=== PATIENT | female | born 1950 | race Caucasian/White ===

== ENCOUNTER 2018-04-12 02:25 | Outpatient (CLI) | payer MEDICARE, SELFPAY ==
--- NOTE | 2018-04-12 11:08 | DI.US_ITS ---
SYMPTOMS/DIAGNOSIS: ABDOMINAL PAIN, R10.9 ABDOMINAL ULTRASOUND: Routine examination was performed. The distal aorta and IVC were not seen due to overlying bowel. The proximal aorta and IVC are unremarkable. The liver is mildly enlarged, measuring almost 19 cm. There is diffuse increased echogenicity of the liver consistent with fatty infiltration. No hepatic mass is seen. There are mobile stones seen within the gallbladder. No sludge, gallbladder wall thickening or pericholecystic fluid is seen. The common duct is within normal limits at 0.4 cm. The pancreatic tail could not be visualized. The remainder of the pancreas has a normal appearance. The spleen is unremarkable. The kidneys are normal in size. No solid renal mass, calculus or obstruction is identified. IMPRESSION: 1. Hepatic steatosis, hepatomegaly. 2. Cholelithiasis. No biliary ductal dilatation.
== END 2018-04-12 02:45 ==
PROVIDERS: PCP Family Medicine; Visit Provider Family Medicine
DX: R10.9 Unspecified abdominal pain (principal); K76.0 Fatty (change of) liver, not elsewhere classified; K80.20 Calculus of gallbladder without cholecystitis without obstruction
CPT/HCPCS: 76700

== ENCOUNTER 2018-10-27 14:07 | Outpatient (REF) | payer MEDICARE, SELFPAY ==
[2018-10-27 20:04] LABS: Hemoglobin A1C 7.7 % (4.5-6.2)
[2018-10-27 20:13] LABS: BUN 16 mg/dL (7-18); Calcium 9.3 mg/dL (8.5-10.1); Chloride 102 mmol/L (98-107); Glucose 174 mg/dL (70-100); Potassium 4.9 mmol/L (3.5-5.1); Sodium 141 mmol/L (136-145); TSH (W/Ref FT4) 1.28 uIU/mL (0.358-3.74)
== END 2018-10-27 14:27 ==
LOC: NCHCN 14:07
PROVIDERS: PCP Family Medicine; Visit Provider Family Medicine
DX: E11.65 Type 2 diabetes mellitus with hyperglycemia (principal); F32.9 Major depressive disorder, single episode, unspecified; I10 Essential (primary) hypertension; E66.9 Obesity, unspecified
CPT/HCPCS: 80048; 83036; 84443

== ENCOUNTER 2018-12-04 18:12 | Outpatient (REF) | payer MEDICARE, SELFPAY ==
--- NOTE | 2018-12-04 11:53 | SKI_PTH ---
PATIENT: Shannen Earl LOC: [facility] U#:[id number] AGE/SX: 68/F ROOM: RE12/04/[address]: Narayan Munoz DO : 1950 BED: DIS: 12/04/2018 SPEC #: [id number] RECD: 12/04/18 18:23 STATUS: ROM REQ #: [id number] DOMINIC: 12/04/18 11:[address]: Narayan Munoz DEPT: Surgical Specimen RECD BY: Wilma Canela ENTERED: 12/04/18 18:24 SP TYPE: SKI OT DR: Sylvia Victoria V Tissues: 1 - SKIN BIOPSY(SHAVE/PUNCH) Procedures: IMMUNOPEROXIDASE STAIN SKIN LEVEL 4 Comments: [id number]
== END 2018-12-04 18:32 ==
LOC: LBN 18:12
PROVIDERS: PCP Family Medicine; Visit Provider Otolaryngology Otolaryngology/Facial Plastic Surgery
DX: D22.61 Melanocytic nevi of right upper limb, including shoulder (principal); Z80.8 Family history of malignant neoplasm of other organs or systems
CPT/HCPCS: 88305; 88361

== ENCOUNTER 2018-12-11 12:28 | Outpatient (REF) | payer MEDICARE, SELFPAY ==
--- NOTE | 2018-12-11 12:06 | SKI_PTH ---
PATIENT: Shannen Earl LOC: [facility] U#:[id number] AGE/SX: 68/F ROOM: RE12/11/[address]: Narayan Munoz DO : 1950 BED: DIS: 12/11/2018 SPEC #: [id number] RECD: 12/11/18 18:12 STATUS: ROM REQ #: [id number] DOMINIC: 12/11/18 12:[address]: Narayan Munoz DEPT: Surgical Specimen RECD BY: Wilma Canela ENTERED: 12/11/18 18:12 SP TYPE: SKI OTHR DR: Sylvia Victoria V Tissues: 1 - SKIN BIOPSY(SHAVE/PUNCH) Procedures: SKIN LEVEL 4 Comments: [id number]
== END 2018-12-11 12:48 ==
LOC: LBN 12:28
PROVIDERS: PCP Family Medicine; Visit Provider Otolaryngology Otolaryngology/Facial Plastic Surgery
DX: L90.5 Scar conditions and fibrosis of skin (principal); D22.61 Melanocytic nevi of right upper limb, including shoulder; Z98.890 Other specified postprocedural states
CPT/HCPCS: 88305

== ENCOUNTER 2019-08-24 12:55 | Outpatient (REF) | payer MEDICARE, SELFPAY ==
[2019-08-24 19:31] LABS: HGB 18.3 g/dL (12.0-15.5); Mean Corpuscular Hemoglobin 30.2 pg (27.0-33.0); Mean Corpuscular Volume 94.2 fL (80-95); Mean Platelet Volume 11.6 fL (8.0-11.0); Platelet Count 199 x1000/uL (130-400); RBC 6.06 m/cumm (4.00-5.20); RBC Distribution Width 14.6 % (11.7-14.6); White Blood Cell Count 6.78 k/cumm (4.4-10.8)
[2019-08-24 19:36] LABS: ALT 21 U/L (14-59); AST 17 U/L (15-37); Albumin 3.5 g/dL (3.4-5.0); Alkaline Phosphatase 140 U/L (46-116); BUN 10 mg/dL (7-18); Bilirubin, Total 0.3 mg/dL (0.2-1.0); CREATININE 0.76 mg/dL (0.55-1.02); Calcium 8.7 mg/dL (8.5-10.1); Chloride 103 mmol/L (98-107); Glucose 124 mg/dL (74-106); Potassium 4.8 mmol/L (3.5-5.1); Sodium 140 mmol/L (136-145); Total Protein 6.7 g/dL (6.4-8.2)
[2019-08-24 19:59] LABS: HCT 57.1 % (36.0-46.0)
[2019-08-24 20:01] LABS: Hemoglobin A1C 7.6 % (3.8-5.6)
[2019-08-27 09:13] LABS: Iron 80 ug/dL (50-170); Total Iron Binding Capacity 346 ug/dL (250-450); Transferrin Sat 23 % (15-50)
[2019-08-27 09:29] LABS: Ferritin 107 ng/mL (8-252)
== END 2019-08-24 13:15 ==
LOC: NCHCN 12:55
PROVIDERS: PCP Family Medicine; Visit Provider Family Medicine
DX: E11.65 Type 2 diabetes mellitus with hyperglycemia (principal); I25.10 Atherosclerotic heart disease of native coronary artery without angina pectoris; K80.20 Calculus of gallbladder without cholecystitis without obstruction; J44.9 Chronic obstructive pulmonary disease, unspecified; F17.210 Nicotine dependence, cigarettes, uncomplicated; E83.119 Hemochromatosis, unspecified
CPT/HCPCS: 80053; 85027; 82728; 83036; 83540; 83550

== ENCOUNTER 2020-01-08 19:59 | Outpatient (REF) | payer MEDICARE, SELFPAY | END 2020-01-08 20:19 | LOC: NCHCN 19:59 | PROVIDERS: PCP Family Medicine; Visit Provider Physician Assistant Medical | DX: R30.0 Dysuria (principal) | CPT/HCPCS: 87086 ==

== ENCOUNTER 2020-10-30 14:33 | Outpatient (REF) | payer MEDICARE, SELFPAY ==
[2020-10-30 18:44] LABS: HCT 54.9 % (36.0-46.0); HGB 18.1 g/dL (11.2-15.7); MPV 11.4 fL (8.0-11.0); Platelet Count 166 10^3/uL (130-400); RBC 5.84 10^6/uL (3.93-5.22); RDW 13.2 % (11.7-14.6); RDW-SD 46.2 fL; WBC 7.54 10^3/uL (4.4-10.8)
[2020-10-30 19:05] LABS: ALT 19 U/L (14-59); AST 16 U/L (15-37); Albumin 3.5 g/dL (3.4-5.0); Alkaline Phosphatase 131 U/L (46-116); BUN 13 mg/dL (7-18); Bilirubin, Total 0.6 mg/dL (0.2-1.0); CREATININE 0.8 mg/dL (0.55-1.02); Calcium 9.1 mg/dL (8.5-10.1); Chloride 101 mmol/L (98-107); Glucose 131 mg/dL (74-106); Potassium 4.1 mmol/L (3.5-5.1); Sodium 137 mmol/L (136-145); Total Protein 6.9 g/dL (6.4-8.2)
[2020-10-30 19:50] LABS: Hemoglobin A1C 7.5 % (<5.7)
[2020-10-30 21:55] LABS: Vitamin B12 364 pg/mL (193-986)
[2020-10-31 14:48] LABS: Calculated LDL 143 mg/dL (<100); Cholesterol 202 mg/dL (<200); HDL Cholesterol 34 mg/dL (40-60); Triglyceride 128 mg/dL (<150)
== END 2020-10-30 14:34 | disposition home or self-care (01) ==
LOC: NCHCN 14:33
PROVIDERS: PCP Family Medicine; Visit Provider Family Medicine
DX: E78.5 Hyperlipidemia, unspecified (principal); I10 Essential (primary) hypertension; I25.10 Atherosclerotic heart disease of native coronary artery without angina pectoris; E11.65 Type 2 diabetes mellitus with hyperglycemia; K75.81 Nonalcoholic steatohepatitis (NASH); G62.9 Polyneuropathy, unspecified
CPT/HCPCS: 80053; 80061; 85027; 82607; 83036

== ENCOUNTER 2021-04-07 17:35 | Outpatient (REF) | payer MEDICARE, SELFPAY ==
[2021-04-07 20:09] LABS: HGB 18.8 g/dL (11.2-15.7); MCH 30.5 pg (27.0-33.0); MCHC 32.4 % (32.0-36.0); MCV 94.2 fL (80-95); MPV 11.3 fL (8.0-11.0); Platelet Count 171 10^3/uL (130-400); RBC 6.17 10^6/uL (3.93-5.22); RDW 13.3 % (11.7-14.6); RDW-SD 46.6 fL; WBC 6.54 10^3/uL (4.4-10.8)
[2021-04-07 20:18] LABS: HCT 58.1 % (36.0-46.0)
[2021-04-07 21:03] LABS: ALT 23 U/L (14-59); AST 15 U/L (15-37); Albumin 3.6 g/dL (3.4-5.0); Alkaline Phosphatase 137 U/L (46-116); Anion Gap 8.5 mmol/L (3-11); BUN 16 mg/dL (7-18); Bilirubin, Total 0.5 mg/dL (0.2-1.0); CO2 29.5 mmol/L (21.0-32.0); CREATININE 0.7 mg/dL (0.55-1.02); Calcium 8.8 mg/dL (8.5-10.1); Chloride 103 mmol/L (98-107); Glucose 196 mg/dL (74-106); Potassium 4.5 mmol/L (3.5-5.1); Sodium 141 mmol/L (136-145); TSH (W/Ref FT4) 0.69 uIU/mL (0.36-3.74); Total Protein 6.7 g/dL (6.4-8.2)
== END 2021-04-07 17:36 | disposition home or self-care (01) ==
LOC: NCHCN 17:35
PROVIDERS: PCP Family Medicine; Referring Provider Family Medicine; Visit Provider Family Medicine
DX: E78.5 Hyperlipidemia, unspecified (principal); I10 Essential (primary) hypertension; E11.65 Type 2 diabetes mellitus with hyperglycemia; K75.81 Nonalcoholic steatohepatitis (NASH); I70.8 Atherosclerosis of other arteries; R53.83 Other fatigue
CPT/HCPCS: 80053; 85027; 83036; 84443

== ENCOUNTER 2021-05-29 09:59 | Outpatient (REF) | payer MEDICARE, SELFPAY ==
[2021-05-30 14:20] LABS: COVID-19 RT-PCR UVMMC Result Negative (Negative)
== END 2021-05-29 10:00 | disposition home or self-care (01) ==
LOC: NCHCN 09:59
PROVIDERS: PCP Family Medicine; Visit Provider Family Medicine
DX: Z20.822 Contact with and (suspected) exposure to COVID-19 (principal); J06.9 Acute upper respiratory infection, unspecified
CPT/HCPCS: U0003; U0005

== ENCOUNTER 2021-06-01 15:50 | Outpatient (REF) | payer MEDICARE, SELFPAY | END 2021-06-01 15:51 | disposition home or self-care (01) | LOC: LBN 15:50 | PROVIDERS: PCP Family Medicine; Visit Provider Physician Assistant | DX: R30.0 Dysuria (principal) | CPT/HCPCS: 87077; 87086; 87186 ==

== ENCOUNTER 2021-08-06 02:31 | Outpatient (CLI) | payer MEDICARE, SELFPAY | END 2021-08-06 02:51 | PROVIDERS: PCP Family Medicine; Visit Provider Family Medicine ==

== ENCOUNTER 2022-06-04 14:40 | Outpatient (REF) | payer MEDICARE, SELFPAY | END 2022-06-04 14:41 | disposition home or self-care (01) | LOC: NCHCN 14:40 | PROVIDERS: PCP Family Medicine; Visit Provider Family Medicine | DX: R30.0 Dysuria (principal) | CPT/HCPCS: 87086 ==

== ENCOUNTER 2022-06-08 03:26 | Outpatient (CLI) | payer MEDICARE, SELFPAY ==
[2022-06-08 13:08] LABS: HGB 18.4 g/dL (11.2-15.7); MCH 30.1 pg (27.0-33.0); MCHC 32.1 % (32.0-36.0); MCV 94 fL (80-95); MPV 10.9 fL (8.0-11.0); Platelet Count 172 10^3/uL (130-400); RBC 6.11 10^6/uL (3.93-5.22); RDW 12.7 % (11.7-14.6); RDW-SD 43.8 fL; WBC 5.87 10^3/uL (4.4-10.8)
[2022-06-08 13:19] LABS: HCT 57.4 % (36.0-46.0)
[2022-06-08 13:45] LABS: C-Reactive Protein 0.09 mg/dL (0.0-0.3)
[2022-06-08 13:55] LABS: ALT 16 U/L (14-59); AST 15 U/L (15-37); Albumin 3.5 g/dL (3.4-5.0); Alkaline Phosphatase 118 U/L (46-116); Anion Gap 8.3 mmol/L (3-11); BUN 12 mg/dL (7-18); Bilirubin, Total 0.5 mg/dL (0.2-1.0); CO2 30.7 mmol/L (21.0-32.0); CREATININE 0.8 mg/dL (0.55-1.02); Calcium 9.1 mg/dL (8.5-10.1); Chloride 104 mmol/L (98-107); Estimated GFR 77.75 (mL/min/1.73m2); Glucose 140 mg/dL (74-106); Potassium 4.3 mmol/L (3.5-5.1); Sodium 143 mmol/L (136-145); Total Protein 7.1 g/dL (6.4-8.2)
[2022-06-08 14:10] LABS: Vitamin D 25 Total 9.4 ng/mL (30-100)
[2022-06-09 17:55] LABS: Erythropoietin 10.4 mIU/mL (2.6 - 18.5)
[2022-06-10 13:07] LABS: JAK2 Result see interpretation
[2022-06-10 17:52] LABS: Alpha-1-Antitrypsin 133 mg/dL (100 - 190)
== END 2022-06-08 03:27 | disposition home or self-care (01) ==
LOC: LBO 03:26
PROVIDERS: PCP Family Medicine; Visit Provider Family Medicine
DX: D75.1 Secondary polycythemia (principal); I25.10 Atherosclerotic heart disease of native coronary artery without angina pectoris; I10 Essential (primary) hypertension; E11.65 Type 2 diabetes mellitus with hyperglycemia
CPT/HCPCS: 36415; 80053; 82306; 82668; 85027; 81270; 82103; 82104; 86140

== ENCOUNTER 2023-01-14 11:58 | Outpatient (REF) | payer MEDICARE, SELFPAY ==
[2023-01-14 17:06] LABS: Prothrombin Time 9.9 sec (9.3-11.0)
[2023-01-14 17:25] LABS: Hemoglobin A1C 8.1 % (<5.7)
[2023-01-14 18:07] LABS: ALT 19 U/L (14-59); AST 13 U/L (15-37); Albumin 3.6 g/dL (3.4-5.0); Alkaline Phosphatase 106 U/L (46-116); Bilirubin, Direct 0.2 mg/dL (0.0-0.2); Bilirubin, Total 0.7 mg/dL (0.2-1.0)
[2023-01-17 11:38] LABS: Hepatitis A Antibody IgM Negative (Negative); Hepatitis B Core Antibody Negative (Negative); Hepatitis B surface Ag Negative (Negative); Hepatitis C Ab w Rflx HCV PCR Negative (Negative)
== END 2023-01-14 11:59 | disposition home or self-care (01) ==
LOC: NCHCN 11:58
PROVIDERS: PCP Family Medicine; Visit Provider Family Medicine
DX: E11.621 Type 2 diabetes mellitus with foot ulcer (principal); E11.65 Type 2 diabetes mellitus with hyperglycemia; I10 Essential (primary) hypertension; K75.81 Nonalcoholic steatohepatitis (NASH); Z11.59 Encounter for screening for other viral diseases; Z01.84 Encounter for antibody response examination
CPT/HCPCS: 80076; 86704; 86709; 86803; 87340; 83036; 85610; 87070; 87205